=== PATIENT | male | born 1970 | race Caucasian/White ===

== ENCOUNTER 2017-11-15 13:27 | Emergency (ER) | payer MEDICAID ==
[~2017-11-15] VITALS: Ht 165.1 cm; Wt 70.3 kg
[2017-11-15 13:37] VITALS: Ht 165.1 cm; Wt 70.3 kg
[2017-11-15 19:24] VITALS: BP 124/65
== END 2017-11-15 19:24 | disposition home or self-care (01) ==
LOC: ED 13:27
DX: M75.91 Shoulder lesion, unspecified, right shoulder (principal); E11.9 Type 2 diabetes mellitus without complications; Z79.84 Long term (current) use of oral hypoglycemic drugs
CPT/HCPCS: J1100; J1885